=== PATIENT | male | born 1960 | race Caucasian/White ===

== ENCOUNTER 2021-12-28 06:33 | Emergency (ER) | payer BC ==
[2021-12-28 07:35] LABS: HEMOGLOBIN 14.7 gm/dl (14.0-17.5); RED BLOOD COUNT 5.01 M/UL (4.20-5.50); WHITE BLOOD COUNT 9.7 K/UL (4.5-11.0)
[2021-12-28 07:55] LABS: BUN/CREATININE RATIO 21 (0-10)
[2021-12-28] MEDS ORDERED: PAXLOVID 300-11 EACH PO (08:50)
== END 2021-12-28 09:06 | disposition home or self-care (01) ==
LOC: ER1 06:33
PROVIDERS: Physician Assistant
DX: U07.1 COVID-19 (principal); J02.9 Acute pharyngitis, unspecified; E11.9 Type 2 diabetes mellitus without complications
CPT/HCPCS: 0240U; 71045; 80053; 85025; 99283